=== PATIENT | male | born 1955 | race Caucasian/White ===

== ENCOUNTER → 2020-03-29 | Outpatient (CLI) | payer MEDICARE, OTHER ==
[~2020-03-29] MED LIST: CARV12.52 PO; CHOL10003 PO; GLIP5TAB10 PO; LOSA100T14 PO; METF500T17 PO; OMEG1CAP23 PO; PEPPERMINT PO; TADA5TAB2 PO; TAMS-11 PO; TEST2.5G TP
[2020-03-29 11:58] LABS: BASOPHILS # (AUTO) 0.04 x10^3/uL (0-0.1); BASOPHILS % (AUTO) 1 % (0-1); EOSINOPHILS # (AUTO) 0.23 x10^3/uL (0-0.4); EOSINOPHILS % (AUTO) 3 % (1-7); LYMPHOCYTES % (AUTO) 19 % (22-44); MD NO; MEAN CORPUSCULAR HGB CONC 33.5 g/dL (33.2-36.2); MEAN CORPUSCULAR VOLUME 95.4 fL (81-97); MEAN PLATELET VOLUME 9.5 fL (7.4-10.4); MONOCYTES # (AUTO) 0.43 x10^3/uL (0.2-0.8); MONOCYTES % (AUTO) 6 % (2-9); NEUTROPHILS # (AUTO) 5.21 x10^3/uL (1.8-6.8); NEUTROPHILS % (AUTO) 71 % (42-75); PLATELET COUNT 199 x10^3/uL (130-400); RED BLOOD COUNT 4.03 x10^6/uL (4.38-5.82); RED CELL DISTRIBUTION WIDTH 14.8 % (9.4-14.8)
[2020-03-29 12:03] LABS: MICROSCOPIC INDICATED
[2020-03-29 12:05] LABS: INTERNATIONAL NORMALIZED RATIO 0.94 (0.93-1.1)
[2020-03-29 12:10] LABS: ALBUMIN 4.5 g/dL (3.4-5.0); ANION GAP 5 mmol/L (5-15); CALCIUM 9.8 mg/dL (8.5-10.1); CHLORIDE 109 mmol/L (98-107)
[2020-03-29 12:14] LABS: ALANINE AMINOTRANSFERASE 28 U/L (12-78); ALKALINE PHOSPHATASE 78 U/L (45-117); BILIRUBIN,TOTAL 0.6 mg/dL (0.2-1.0); CREATININE 1.62 mg/dL (0.7-1.3); TOTAL PROTEIN 7.9 g/dL (6.4-8.2)
== END | disposition home or self-care (01) ==
LOC: STAR 10:25
PROVIDERS: ATTEND Urology
DX: Z01.818 Encounter for other preprocedural examination (principal); N21.0 Calculus in bladder
CPT/HCPCS: 36415; 80053; 81001; 85025; 85610; 87086; 93005

== ENCOUNTER 2020-04-04 09:56 | Day surgery (SDC) | payer MEDICARE, OTHER ==
[~2020-04-04] VITALS: Ht 182.9 cm; Wt 91.9 kg
[2020-04-04] MEDS ORDERED: LACTATED RINGERS 1,000 ML IV SCH (10:05)
[2020-04-04] MEDS ORDERED: CHLORHEXIDINE 15 ML UDC MM STA (10:05)
[2020-04-04 10:16] VITALS: BP 150/83
[2020-04-04] MEDS ORDERED: LIDOCAINE-MPF 1%, 2ML ONE (10:18)
[2020-04-04] MEDS ORDERED: LIDOCAINE-MPF 1%, 2ML INFIL ONE (10:30)
[2020-04-04] MEDS ORDERED: MIDAZOLAM 1 MG/ML, 2ML ONE (10:35)
[2020-04-04] MEDS ORDERED: FENTANYL PF 250 MCG/5ML ONE (10:35)
[2020-04-04] MEDS ORDERED: DEXAMETHASONE 4 MG/ML, 1ML ONE (11:31)
[2020-04-04] MEDS ORDERED: CEFAZOLIN 1,000 MG ONE (11:31)
[2020-04-04] MEDS ORDERED: ROCURONIUM 10 MG/ML,10ML ONE (11:31)
[2020-04-04] MEDS ORDERED: SUCCINYLCHOLINE 20 MG/ML, 10ML ONE (11:31)
[2020-04-04] MEDS ORDERED: PROPOFOL 10 MG/ML, 20ML ONE (11:31)
[2020-04-04] MEDS ORDERED: ONDANSETRON 2MG/ML, 2ML ONE (11:31)
[2020-04-04] MEDS ORDERED: KETOROLAC 30 MG/1 ML ONE (11:31)
[2020-04-04] MEDS ORDERED: KETOROLAC 30 MG/1 ML IV PRN (12:00)
[2020-04-04] MEDS ORDERED: METOCLOPRAMIDE 5 MG/ML, 2ML IV PRN (12:00)
[2020-04-04] MEDS ORDERED: FENTANYL PF 100 MCG/2ML IV PRN (12:00)
[2020-04-04] MEDS ORDERED: LABETALOL 5MG/ML, 20ML IV PRN (12:00)
[2020-04-04] MEDS ORDERED: MEPERIDINE/PF 25MG/0.5ML IVPush PRN (12:00)
[2020-04-04] MEDS ORDERED: ALBUTEROL SULFATE 2.5 MG/3 ML NPPB PRN (12:00)
[2020-04-04] MEDS ORDERED: DIAZEPAM 5 MG/ML, 2ML IV PRN ×2 (12:00)
[2020-04-04] MEDS ORDERED: PROMETHAZINE 25 MG/ML, 1ML IV PRN (12:00)
[2020-04-04] MEDS ORDERED: OXYcodone 5 MG/5 ML ORAL.SOL UDC PO PRN (12:00)
[2020-04-04] MEDS ORDERED: ONDANSETRON 2MG/ML, 2ML IVPush PRN (12:00)
[2020-04-04] MEDS ORDERED: HYDROmorphone 1 MG/ML, 1ML INJ IV PRN (12:00)
[2020-04-04] MEDS ORDERED: hydrALAzine 20 MG/ML, 1ML ONE ×3 (13:42→14:16)
[2020-04-04] MEDS: hydrALAzine 20 MG/ML, 1ML IV PRN ×2 (13:45→14:15)
[2020-04-04] MEDS ORDERED: OPIUM/BELLADONNA SUPP.RECT 16.2-60 MG ONE (14:58)
[2020-04-04] MEDS ORDERED: OPIUM/BELLADONNA SUPP.RECT 16.2-60 MG PR PRN (15:00)
== END 2020-04-04 17:30 | disposition home or self-care (01) ==
LOC: OUT 09:56
PROVIDERS: ATTEND Urology
DX: N21.0 Calculus in bladder (principal); N35.912 Unspecified bulbous urethral stricture, male; E11.22 Type 2 diabetes mellitus with diabetic chronic kidney disease; I13.0 Hypertensive heart and chronic kidney disease with heart failure and stage 1 through stage 4 chronic kidney disease, or unspecified chronic kidney disease; N18.9 Chronic kidney disease, unspecified; I50.9 Heart failure, unspecified; I42.8 Other cardiomyopathies; Z79.899 Other long term (current) drug therapy; Z90.49 Acquired absence of other specified parts of digestive tract; Z95.0 Presence of cardiac pacemaker; Z98.890 Other specified postprocedural states; Z83.3 Family history of diabetes mellitus; Z82.49 Family history of ischemic heart disease and other diseases of the circulatory system; Z84.1 Family history of disorders of kidney and ureter
CPT/HCPCS: 52318; 82360; 82962; 88300; J0330; J0360; J0690; J1100; J1885; J2250; J2405; J2704; J3010; J7120; 36415; 87635